=== PATIENT | male | born 1990 | race Caucasian/White ===

== ENCOUNTER 2018-06-04 03:44 | Emergency (ER) | payer SELFPAY ==
[~2018-06-04] VITALS: Ht 188 cm; Wt 81.6 kg
[2018-06-04] MEDS ORDERED: NKM (04:31)
[2018-06-04 04:40] VITALS: BP 123/82
[2018-06-04] MEDS ORDERED: HYDROcodone/Acetamin 10/325 tab ORAL ONE (04:45)
[2018-06-04] MEDS ORDERED: PREDNISONE20 MG ORAL (04:45)
[2018-06-04] MEDS ORDERED: Ketorolac 60mg Inj IM ONE (04:45)
[2018-06-04] MEDS ORDERED: ROBAXIN-750750 MG PO (04:45)
[2018-06-04] MEDS ORDERED: NORCO 10-325 T1 EACH ORAL (04:45)
[2018-06-04 05:10] VITALS: BP 0/0
--- NOTE | 2018-06-05 02:55 | Emergency Room Report ---
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 He has a tournament upcoming However has had increased pain to the left lower back with some radiation to the upper thigh Patient reports having previous MRI Has had physical therapy And feels that he has exacerbated the underlying issue pain is worse with walking and standing better with rest Allergies: Coded Allergies: No Known Allergies (Unverified , 06/04/18) Patient History Past Medical History: see triage record Pertinent Family History: none Reviewed Nursing Documentation: PMH: Agreed; PSxH: Agreed Review of Systems All Other Systems: negative except mentioned in HPI Physical Exam Vital Signs Date Time Temp Pulse Resp B/P (MAP) Pulse Ox O2 Delivery O2 Flow Rate FiO2 06/04/18 04:25 98.7 89 16 123/82 98 Room Air 98.8 Sp02 EP Interpretation: reviewed, normal General Appearance: well appearing, no apparent distress Head: normocephalic, atraumatic Eyes: bilateral eye PERRL, bilateral eye EOMI ENT: hearing grossly normal, normal pharynx, TMs + canals normal, uvula midline Neck: full range of motion, supple, no meningismus, no bony tend Respiratory: lungs clear, normal breath sounds, no rhonchi, no respiratory distress, no retraction, no accessory muscle use Cardiovascular #1: normal peripheral pulses, regular rate, rhythm, no edema, no gallop, no JVD, no murmur Gastrointestinal: normal bowel sounds, non tender, soft, no mass, no organomegaly, non-distended, no guarding, no hernia, no pulsatile mass, no rebound Genitourinary: no CVA tenderness Musculoskeletal: other - Tender on palpation of the left posterior superior iliac crest, however stable gait is noted sensory is intact no saddle paresthesia Neurologic: oriented x3, responsive, 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, motor strength/ tone normal, sensory intact Psychiatric: mood/affect normal Skin: normal color, no rash, warm/dry, palpation normal Lymphatic: normal inspection, no adenopathy Medical Decision Making Diagnostic Impression: Primary Impression: sciatica ER Course Patient was treated with pain medication here [employer] system does not reveal significant opiate prescription Patient was given prescription for few days And will require close outpatient follow-up Last Vital Signs Date Time Temp Pulse Resp B/P (MAP) Pulse Ox O2 Delivery O2 Flow Rate FiO2 06/04/18 05:10 0/0 06/04/18 04:58 98.7 06/04/18 04:40 89 16 98 Room Air Status: improved Disposition: HOME, SELF-CARE Condition: Improved Scripts Prednisone* (PREDNISONE*) 20 Mg Tablet 20 MG ORAL BID, #12 TAB Prov: Marine Paul DO 06/04/18 Methocarbamol* (ROBAXIN-750*) 750 Mg Tablet 750 MG PO TID, #21 TAB 0 Refills Prov: Marine Paul DO 06/04/18 Hydrocodone Bit/Acetaminophen 10-325* (NORCO 10-325*) 1 Each Tablet 1 TAB ORAL Q12HR PRN for For Pain, #10 TAB 0 Refills PRN PAIN Prov: Marine Paul DO 06/04/18 Referrals: NON PHYSICIAN (PCP) Patient Instructions: Sciatica, Back Pain, Adult Additional Instructions: Patient is provided with the discharge instructions notified to follow up with primary doctor in the next 2-3 days otherwise return to the er with any worsening symptoms. Please note that this report is being documented using [employer] technology. This can lead to erroneous entry secondary to incorrect interpretation by the dictating instrument. Marine Paul DO Jun 05, 2018 02:55
== END 2018-06-04 05:10 | disposition home or self-care (01) ==
LOC: EMR 04:20
DX: M54.42 Lumbago with sciatica, left side (principal)
CPT/HCPCS: 96372; 99284; J7512